=== PATIENT | female | born 1990 | race Caucasian/White ===

== ENCOUNTER 2017-02-26 12:50 | Emergency (ER) | payer OTHER ==
--- NOTE | 2017-02-26 13:22 | ED NURSING NOTES ---
Clinical Report - Nurses [facility] [place] [address] 02/26/2017 12:53 Patient: THIAGO BRAGG TRIAGE Acuity: LEVEL 4. Chief Complaint: LEFT UPPER TOOTHACHE and JAW PAIN. Alert. No acute distress. SEPSIS SCREEN: Sepsis Screen. Negative (no infection suspected/documented). --13: Mercedez Willingham R.N. 13:04 02/26/17. BP: 127/71. HR: 66. RR: 16. O2 saturation: 99% on room air. Temp: 98.1 F (oral). Pain level now: 02/25. --13: Mercedez Willingham R.N. Weight: 79.3 kg stated. Height/Length: 64 inches Per Patient. BMI: 30. --13: Mercedez Willingham R.N. Medications None. --13: Mercedez Willingham R.N. Medication/allergy information source: the patient. --13: Mercedez Willingham R.N. Allergies No Known Drug Allergy. --13: Mercedez Willingham R.N. History Arrived by private vehicle. Historian: patient. Unaccompanied. Primary physician (none). Onset. (3 days ago). 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 PAST MEDICAL HX: Immunizations: up-to-date. Last normal menstrual period now. SOCIAL HX: Current every day light tobacco smoker (cigarette)- less than 1/2 a pack per day. Occasional alcohol use. No drug use. FALL RISK ASSESSMENT: Fall risk assessment completed. No fall risk identified. NUTRITIONAL RISK ASSESSMENT: The nutritional risk assessment revealed no deficiencies. FUNCTIONAL ASSESSMENT: Functional assessment: no impairments noted. LEARNING NEEDS ASSESSMENT: The learning needs assessment revealed no barriers. SKIN INTEGRITY ASSESSMENT: Skin integrity risk assessment completed. No skin integrity risk identified. --13:07 Mercedez Willingham R.N. PROBLEMS: Nephrolithiasis. Gestational diabetes mellitus. Pharyngitis. Dental Caries. Tonsillitis. Strep Throat. --13:06 Mercedez Willingham R.N. Assessment GENERAL / NEURO / PSYCH: Alert. Oriented X 4. Appears in no acute distress. Nicki Coma Scale: 15- eyes open spontaneously (4); best verbal response- oriented x 4 (5); best motor response- obeys commands (6). Patient appears calm and cooperative. RESPIRATORY: Respirations not labored. CVS: Capillary refill less than 2 seconds. GI / : Abdomen soft and nontender. SKIN: Mucous membranes are pink. Skin is warm and dry. --13:07 Mercedez Willingham R.N. Interventions ID band on patient. To treatment room. --13:07 Mercedez Willingham R.N. PHYSICAL ASSESSMENT Ambulatory to room. GENERAL / NEURO / PSYCH: Alert. Oriented X 4. Appears in no acute distress. HEENT: Pupils equal, round and reactive to light. Pharynx within normal limits. Voice within normal limits. Mucous membranes are pink. RESPIRATORY: Respirations not labored. SKIN: Skin is warm and dry. Normal skin turgor. --13:08 Mercedez Willingham R.N. NURSING PROGRESS NOTES 13:08 02/26/17. Two patient identifiers checked. Checked patient name and birthdate: patient confirmed. Call light placed in reach. Bed placed in lowest position. Brakes of bed on. Patient ready for evaluation- chart flagged and ED physician and PA notified. --13:08 Mercedez Willingham R.N. DISPOSITION / DISCHARGE Departure time: 1352. Condition at departure: unchanged and stable. No learning barriers present. Discharge instructions provided and reviewed with the patient. Reviewed medication(s). Patient verbalized understanding. Written instructions provided in Khmer. The patient was discharged by the physician preschool assistant. She was discharged home. She left the Emergency Department ambulatory and via private vehicle. Patient driving. --13:55 Reece Moon R.N. Locked/Released at 02/26/2017 20:08 by Mercedez Willingham R.N.
--- NOTE | 2017-02-26 13:22 | ED CLINICAL REPORT ---
Clinical Report - Physicians/Mid Levels [facility] [address] [place] [address] 02/26/2017 12:53 [id number] Time Seen: 13:07 Feb 26 2017. Arrived- By private vehicle. Historian- patient. HISTORY OF PRESENT ILLNESS Chief Complaint: DENTAL PAIN. 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 No mouth sores, nasal congestion or ear pain. She has had toothache, jaw pain and facial pain. (Left upper dental pain for 3 days, with swelling. Denies recent trauma. denies any fevers. Some pain with swallowing. Dental appointment next week. No recent dental work. No cough. NO otalgia.). Similar symptoms previously: None. REVIEW OF SYSTEMS No fever, cough, diarrhea, abdominal pain or headache. All systems otherwise negative, except as recorded above. SOCIAL HISTORY Smoker- current status unknown. Alcohol use. No drug use. PHYSICAL EXAM Appearance: Alert. ENT: Moderate dental tenderness of multiple teeth (upper left first premolar and second premolar). Ears normal. Nose normal. Pharynx normal. Uvula midline. No tonsillar exudate, dental decay or trismus. Neck: Trachea midline. No adenopathy. No thyromegaly or meningeal signs. Respiratory: No respiratory distress. Breath sounds normal. PROGRESS AND PROCEDURES Course of Care: No signs of ludwigs angina, uvula midline. Pt with no facial swelling. No signs of palpable abscess or mass. Speaks in full sentances. Tolerates po well. 02/26/2017 13:04 BP: 127/71. HR: 66. RR: 16. O2 saturation: 99%. Temp: 98.1 F. Pain level now: 02/25. Patient is stable. Symptoms better. Patient/family counseled. Disposition: Discharged. Condition: good. CLINICAL IMPRESSION Moderate dental pain. INSTRUCTIONS Drink plenty of fluids. (salt water rinses cold compressions to outside of face). Prescription Medications: Hydrocodone/APAP 5mg / 325mg: take 1 orally every 6 hours as needed for pain. Dispense five (5). No refill. Amoxicillin 500 mg tablets: Take 1 orally every 8 hours for 10 days. Dispense thirty (30). No refills. (Electronically signed by Clarita Jones P.A.-C 02/26/2017 13:54)
--- NOTE | 2017-02-26 13:22 | ED CLINICAL REPORT ---
Clinical Report - Physicians/Mid Levels [facility] [address] [place] [address] 02/26/2017 12:53 [id number] Time Seen: 13:07 Feb 26 2017. Arrived- By private vehicle. Historian- patient. HISTORY OF PRESENT ILLNESS Chief Complaint: DENTAL PAIN. 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 No mouth sores, nasal congestion or ear pain. She has had toothache, jaw pain and facial pain. (Left upper dental pain for 3 days, with swelling. Denies recent trauma. denies any fevers. Some pain with swallowing. Dental appointment next week. No recent dental work. No cough. NO otalgia.). Similar symptoms previously: None. REVIEW OF SYSTEMS No fever, cough, diarrhea, abdominal pain or headache. All systems otherwise negative, except as recorded above. SOCIAL HISTORY Smoker- current status unknown. Alcohol use. No drug use. PHYSICAL EXAM Appearance: Alert. ENT: Moderate dental tenderness of multiple teeth (upper left first premolar and second premolar). Ears normal. Nose normal. Pharynx normal. Uvula midline. No tonsillar exudate, dental decay or trismus. Neck: Trachea midline. No adenopathy. No thyromegaly or meningeal signs. Respiratory: No respiratory distress. Breath sounds normal. PROGRESS AND PROCEDURES Course of Care: No signs of ludwigs angina, uvula midline. Pt with no facial swelling. No signs of palpable abscess or mass. Speaks in full sentances. Tolerates po well. 02/26/2017 13:04 BP: 127/71. HR: 66. RR: 16. O2 saturation: 99%. Temp: 98.1 F. Pain level now: 02/25. Patient is stable. Symptoms better. Patient/family counseled. Disposition: Discharged. Condition: good. CLINICAL IMPRESSION Moderate dental pain. INSTRUCTIONS Drink plenty of fluids. (salt water rinses cold compressions to outside of face). Prescription Medications: Hydrocodone/APAP 5mg / 325mg: take 1 orally every 6 hours as needed for pain. Dispense five (5). No refill. Amoxicillin 500 mg tablets: Take 1 orally every 8 hours for 10 days. Dispense thirty (30). No refills. (Electronically signed by Clarita Jones P.A.-C 02/26/2017 13:54)
--- NOTE | 2017-02-26 13:22 | ED NURSING NOTES ---
Clinical Report - Nurses [facility] [place] [address] 02/26/2017 12:53 Patient: THIAGO BRAGG TRIAGE Acuity: LEVEL 4. Chief Complaint: LEFT UPPER TOOTHACHE and JAW PAIN. Alert. No acute distress. SEPSIS SCREEN: Sepsis Screen. Negative (no infection suspected/documented). --13: Mercedez Willingham R.N. 13:04 02/26/17. BP: 127/71. HR: 66. RR: 16. O2 saturation: 99% on room air. Temp: 98.1 F (oral). Pain level now: 02/25. --13: Mercedez Willingham R.N. Weight: 79.3 kg stated. Height/Length: 64 inches Per Patient. BMI: 30. --13: Mercedez Willingham R.N. Medications None. --13: Mercedez Willingham R.N. Medication/allergy information source: the patient. --13: Mercedez Willingham R.N. Allergies No Known Drug Allergy. --13: Mercedez Willingham R.N. History Arrived by private vehicle. Historian: patient. Unaccompanied. Primary physician (none). Onset. (3 days ago). 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 PAST MEDICAL HX: Immunizations: up-to-date. Last normal menstrual period now. SOCIAL HX: Current every day light tobacco smoker (cigarette)- less than 1/2 a pack per day. Occasional alcohol use. No drug use. FALL RISK ASSESSMENT: Fall risk assessment completed. No fall risk identified. NUTRITIONAL RISK ASSESSMENT: The nutritional risk assessment revealed no deficiencies. FUNCTIONAL ASSESSMENT: Functional assessment: no impairments noted. LEARNING NEEDS ASSESSMENT: The learning needs assessment revealed no barriers. SKIN INTEGRITY ASSESSMENT: Skin integrity risk assessment completed. No skin integrity risk identified. --13:07 Mercedez Willingham R.N. PROBLEMS: Nephrolithiasis. Gestational diabetes mellitus. Pharyngitis. Dental Caries. Tonsillitis. Strep Throat. --13:06 Mercedez Willingham R.N. Assessment GENERAL / NEURO / PSYCH: Alert. Oriented X 4. Appears in no acute distress. Nicki Coma Scale: 15- eyes open spontaneously (4); best verbal response- oriented x 4 (5); best motor response- obeys commands (6). Patient appears calm and cooperative. RESPIRATORY: Respirations not labored. CVS: Capillary refill less than 2 seconds. GI / : Abdomen soft and nontender. SKIN: Mucous membranes are pink. Skin is warm and dry. --13:07 Mercedez Willingham R.N. Interventions ID band on patient. To treatment room. --13:07 Mercedez Willingham R.N. PHYSICAL ASSESSMENT Ambulatory to room. GENERAL / NEURO / PSYCH: Alert. Oriented X 4. Appears in no acute distress. HEENT: Pupils equal, round and reactive to light. Pharynx within normal limits. Voice within normal limits. Mucous membranes are pink. RESPIRATORY: Respirations not labored. SKIN: Skin is warm and dry. Normal skin turgor. --13:08 Mercedez Willingham R.N. NURSING PROGRESS NOTES 13:08 02/26/17. Two patient identifiers checked. Checked patient name and birthdate: patient confirmed. Call light placed in reach. Bed placed in lowest position. Brakes of bed on. Patient ready for evaluation- chart flagged and ED physician and PA notified. --13:08 Mercedez Willingham R.N. DISPOSITION / DISCHARGE Departure time: 1352. Condition at departure: unchanged and stable. No learning barriers present. Discharge instructions provided and reviewed with the patient. Reviewed medication(s). Patient verbalized understanding. Written instructions provided in Pashto. The patient was discharged by the physician engineering inspection assistant. She was discharged home. She left the Emergency Department ambulatory and via private vehicle. Patient driving. --13:55 Reece Moon R.N. Locked/Released at 02/26/2017 20:08 by Mercedez Willingham R.N.
--- NOTE | 2017-02-26 20:09 | ED MAR SUMMARY ---
..... Medication Administration Record [facility] [address] [place], [place] [id number] Patient: THIAGO BRAGG Visit ID: [id number] 26y, F Weight: 79.3 kg Height/Length: 64 in BMI: 30 ALLERGIES: No Known Drug Allergy
--- NOTE | 2017-02-26 20:09 | ED MED RECONCILIATION SUMMARY ---
Patient: THIAGO BRAGG Medication Reconciliation Report [facility] VisitID: [id number] [address] [place] [address] 26y, F Registration Date/Time: 02/26/2017 Weight: 79.3 kg Height/Length: 64 in. BMI: 30.0 ALLERGIES: No Known Drug Allergy The patient's Home Medications are listed below: NONE. The source(s) of the original Home Medication information: patient The following Medications were given to the patient in the Emergency Department: None. The following Medications were prescribed to the patient: Hydrocodone/APAP 5mg / 325mg: take 1 orally every 6 hours as needed for pain. Dispense five (5). No refill. -- Clarita Jones, P.A.-Carl Amoxicillin 500 mg tablets: Take 1 orally every 8 hours for 10 days. Dispense thirty (30). No refills. -- Clarita Jones, P.A.-C
--- NOTE | 2017-02-26 20:09 | ED MAR SUMMARY ---
..... Medication Administration Record [facility] [address] [place], [place] [id number] Patient: THIAGO BRAGG Visit ID: [id number] 26y, F Weight: 79.3 kg Height/Length: 64 in BMI: 30 ALLERGIES: No Known Drug Allergy
--- NOTE | 2017-02-26 20:09 | ED DISCHARGE INSTRUCTIONS ---
Patient: THIAGO BRAGG General Instructions [facility] VisitID: [id number] [place] [address] 26y, F Registration Date/Time: 02/26/2017 Moderate dental pain. INSTRUCTIONS Drink plenty of fluids. (salt water rinses cold compressions to outside of face). Prescription Medications: Hydrocodone/APAP 5mg / 325mg: take 1 orally every 6 hours as needed for pain. Dispense five (5). No refill. Amoxicillin 500 mg tablets: Take 1 orally every 8 hours for 10 days. Dispense thirty (30). No refills. ADDITIONAL INFORMATION Dental Pain A crack or cavity in the tooth, which exposes the sensitive inner area of the tooth can cause tooth pain. An infection in the gum or the root of the tooth can cause pain and swelling. The pain is often made worse by drinking hot or cold fluids, or biting on hard foods. Pain may spread from the tooth to the ear or jaw on the same side. Home Care: Avoid hot and cold foods and liquids since your tooth may be sensitive to temperature changes. If your tooth is chipped or cracked, or if there is a large open cavity, apply OIL OF CLOVES (available [id number] in drug stores) directly to the tooth to reduce pain. Some pharmacies carry an rbbh-jas-ffgodal "toothache kit." This contains a paste, which can be applied over the exposed tooth to decrease sensitivity. A cold pack on your jaw over the sore area may help reduce pain. You may use acetaminophen (Tylenol) or ibuprofen (Motrin, Advil) to control pain, unless another medicine was prescribed. [ NOTE: If you have chronic liver or kidney disease or ever had a stomach ulcer or GI bleeding, talk with your doctor before using these medicines.] If you have signs of an infection, an antibiotic will be given. Take it as directed. Follow-Up as directed with a dentist. Your pain may go away with the treatment given. However, only a dentist can fully evaluate and treat the cause and prevent the pain from coming back again. TOOTHACHE IS A SIGN OF DISEASE IN YOUR TOOTH AND SHOULD BE EXAMINED AND TREATED BY A DENTIST. Get Prompt Medical Attention if any of the following occur: Your face becomes swollen or red Pain worsens or spreads to the neck Fever over 100.4 F (38.0 C) Unusual drowsiness; headache or stiff neck; weakness or fainting Pus drains from the tooth Difficulty swallowing or breathing You have been given the following additional information: Dental Pain (Electronically signed by Clarita Jones P.A.-C 02/26/2017 13:54)
--- NOTE | 2017-02-26 20:09 | ED DISCHARGE INSTRUCTIONS ---
Patient: THIAGO BRAGG General Instructions [facility] VisitID: [id number] [place] [address] 26y, F Registration Date/Time: 02/26/2017 Moderate dental pain. INSTRUCTIONS Drink plenty of fluids. (salt water rinses cold compressions to outside of face). Prescription Medications: Hydrocodone/APAP 5mg / 325mg: take 1 orally every 6 hours as needed for pain. Dispense five (5). No refill. Amoxicillin 500 mg tablets: Take 1 orally every 8 hours for 10 days. Dispense thirty (30). No refills. ADDITIONAL INFORMATION Dental Pain A crack or cavity in the tooth, which exposes the sensitive inner area of the tooth can cause tooth pain. An infection in the gum or the root of the tooth can cause pain and swelling. The pain is often made worse by drinking hot or cold fluids, or biting on hard foods. Pain may spread from the tooth to the ear or jaw on the same side. Home Care: Avoid hot and cold foods and liquids since your tooth may be sensitive to temperature changes. If your tooth is chipped or cracked, or if there is a large open cavity, apply OIL OF CLOVES (available [id number] in drug stores) directly to the tooth to reduce pain. Some pharmacies carry an [id number]-ugr-ufncsfi "toothache kit." This contains a paste, which can be applied over the exposed tooth to decrease sensitivity. A cold pack on your jaw over the sore area may help reduce pain. You may use acetaminophen (Tylenol) or ibuprofen (Motrin, Advil) to control pain, unless another medicine was prescribed. [ NOTE: If you have chronic liver or kidney disease or ever had a stomach ulcer or GI bleeding, talk with your doctor before using these medicines.] If you have signs of an infection, an antibiotic will be given. Take it as directed. Follow-Up as directed with a dentist. Your pain may go away with the treatment given. However, only a dentist can fully evaluate and treat the cause and prevent the pain from coming back again. TOOTHACHE IS A SIGN OF DISEASE IN YOUR TOOTH AND SHOULD BE EXAMINED AND TREATED BY A DENTIST. Get Prompt Medical Attention if any of the following occur: Your face becomes swollen or red Pain worsens or spreads to the neck Fever over 100.4 F (38.0 C) Unusual drowsiness; headache or stiff neck; weakness or fainting Pus drains from the tooth Difficulty swallowing or breathing You have been given the following additional information: Dental Pain (Electronically signed by Clarita Jones P.A.-C 02/26/2017 13:54)
--- NOTE | 2017-02-26 20:09 | ED MED RECONCILIATION SUMMARY ---
Patient: THIAGO BRAGG Medication Reconciliation Report [facility] VisitID: [id number] [address] [place] [address] 26y, F Registration Date/Time: 02/26/2017 Weight: 79.3 kg Height/Length: 64 in. BMI: 30.0 ALLERGIES: No Known Drug Allergy The patient's Home Medications are listed below: NONE. The source(s) of the original Home Medication information: patient The following Medications were given to the patient in the Emergency Department: None. The following Medications were prescribed to the patient: Hydrocodone/APAP 5mg / 325mg: take 1 orally every 6 hours as needed for pain. Dispense five (5). No refill. -- Clarita Jones, P.A.-Carl Amoxicillin 500 mg tablets: Take 1 orally every 8 hours for 10 days. Dispense thirty (30). No refills. -- Clarita Jones, P.A.-C
== END 2017-02-26 13:52 | disposition home or self-care (01) ==
LOC: ED SRH 12:50
DX: K08.89 Other specified disorders of teeth and supporting structures (principal)